=== PATIENT | male | born 1990 | race Caucasian/White ===

== ENCOUNTER 2017-05-04 05:33 | Day surgery (SDC) | payer OTHER ==
[2017-05-04] VITALS (9 sets, daily range): BP systolic 117–138; BP diastolic 51–70; PULSE 54–67; RESP 11–18; O2SAT 98–100
[~2017-05-04] VITALS: Ht 172.7 cm; Wt 83.6 kg
[~2017-05-04 05:33] MED LIST: CeFAZolin 2 Gm/50 mL D5W IV Premix IV ONE; Lactated Ringer's 1,000 ML IV ONE; Lactated Ringer's 1,000 ML IV SCH
[2017-05-04] MEDS ORDERED: Propofol 10,000 mCg/mL 20 mL Inj ONE (05:34)
[2017-05-04] MEDS ORDERED: fentaNYL-PF 50 mCg/mL 2 mL Inj ONE (05:34)
[2017-05-04] MEDS ORDERED: Ondansetron 2 mg/mL 2 mL Inj ONE (05:34)
[2017-05-04] MEDS ORDERED: MetoCLOpramide 5 mg/mL 2 mL Inj ONE (05:34)
[2017-05-04] MEDS ORDERED: Dexamethasone 4 mg/mL Inj ONE (05:34)
[2017-05-04] MEDS ORDERED: CeFAZolin 2 Gm/50 mL D5W IV Premix IV ONE (06:00)
[2017-05-04] MEDS ORDERED: Lactated Ringer's 1,000 ML IV ONE (06:00)
[2017-05-04] MEDS ORDERED: Lidocaine PF 1% 30 mL Inj NERVEBLOCK ONE (07:30)
[2017-05-04] MEDS ORDERED: Phenylephrine 10,000 mCg/mL Inj IVPUSH PRN (07:40)
[2017-05-04] MEDS ORDERED: HYDROmorphone 1 mg/mL Inj IVPUSH PRN (07:40)
[2017-05-04] MEDS ORDERED: fentaNYL-PF 50 mCg/mL 2 mL Inj IVPUSH PRN (07:40)
[2017-05-04] MEDS ORDERED: Lactated Ringer's 500 ML IV PRN (07:40)
[2017-05-04] MEDS ORDERED: Dexamethasone 4 mg/mL Inj IVPUSH PRN (07:40)
[2017-05-04] MEDS ORDERED: EPHEDrine Sulfate 50 mg/mL Inj IVPUSH PRN (07:40)
[2017-05-04] MEDS ORDERED: Lactated Ringer's 1,000 ML IV SCH (07:40)
[2017-05-04] MEDS ORDERED: Ondansetron 2 mg/mL 2 mL Inj IVPUSH PRN (07:40)
[2017-05-04] MEDS ORDERED: MetoCLOpramide 5 mg/mL 2 mL Inj IVPUSH PRN (07:40)
--- NOTE | 2017-05-04 07:40 | PCM.HPANE ---
Patient Data Date of Service: May 04, 2017 (0715) Surgeon Admitting Provider: Attending Provider:Karol Sotelo MD Primary Care Physician:Nayely Other Provider:Josie Garcia Anesthesia Reason for Visit Phimosis Ht/WT & BMI Height (Feet): 5 Height (Inches): 8.00 Weight (Kilograms): 83.640 Body Mass Index 27.00 Allergies Coded Allergies: No Known Allergies (Unverified , 04/29/17) Past Anesthesia History Anesthesia History: Denies:: Abnormal Airway, Anesthesia Reactions (no prior surgery), Difficult Intubation, Fam Anesthesia Reaction, Fam Malignant Hypertherm Diabetes History Hx Diabetes?: No MRSA MRSA: No Medications Hypertension Medication: No Home Meds Incl Beta [place]: No No Active Prescriptions or Reported Meds History History of ENT Problems?: No HEENT History: Denies:: Abnormal Airway Cataracts Difficult Intubation Dysphagia Glaucoma Hearing Problem Sinus Problem TMJ Denture Type: None Teeth Condition: Within Normal Limits Hx of Heart Problems?: No Cardiovascular History: Denies:: AICD Abdominal Aortic Aneurism Atrial Fibrillation Cardiac Surgery Heart Murmur Hypertension Irregular Heartbeat Pacemaker Hx of Respiratory Problem?: No Respiratory History: Denies:: Asthma COPD Emphysema Oxygen Administration Pneumonia Tuberculosis Use of C-PAP Machine Use of Inhalers / NEBS Hx Neurologic Problems?: No Neurological History: Denies:: CVA Dizziness Headaches Multiple Sclerosis Parkinson's Disease Seizures TIA Hx of GI Problems?: No Hx of Problems?: Yes Genitourinary History: Denies:: Kidney Stones Urinary Tract Infection Other Pertinent History: phimosis=current problem Male Hx: Denies:: Prostate Problems Scrotal Mass Testicular Surgery Skin History: Denies:: History Skin Disorders? Pressure Ulcers Hx Musculoskeletal Problems?: No Musculoskeletal History: Denies:: Back Injury Fibromyalgia Joint Replacement Musculoskeletal Trauma Myasthenia Gravis Osteoarthritis Rheumatoid Arthritis Systemic Lupus Hx of Psycho/Social Problems?: No Psycho Social History: Denies:: Anxiety Hx Depression Hx Surgeries?: No Hx Any Other Health Problems?: No Other History: Denies:: Cancer Endocrine Disease Hospitalization Thyroid Disease History Blood Transfusions: Positive for:: Accept Blood Products? Denies:: Blood Transfusions Hx Diabetes: No Hx Alcohol Use: NoHx Substance Use: NoHave You Smoked inLast 12 mo: No Stop/Bang S-Snoring: Do You Snore Loudly: No T-Tired: feel tired, fatigued: No O-Obsered: Observed not breath: No P-Blood Pressure: treated: No B- Body Mass Index > 35 kg/m2: No A- Age over 50: No N- Neck Large Circumference: No G- Gender Male: Yes ARIAN Total Score: 1 Risk Assessment Category Category 1A: Patient has history of documented sleep apnea, and HAS NOT received any narcotic, sedative or anesthesia administration during this stay. Category 1B: Patient has history of documented sleep apnea, and HAS received any narcotic , sedative or anesthesia administration during this stay Category 2: Patient has SUSPECTED Obstructive Sleep Apnea, and HAS received any narcotic , sedative or anesthesia administration during this stay. Category 3: Patient has SUSPECTED Obstructive Sleep Apnea and HAS NOT received narcotic, sedative or anesthesia administration during this stay. Category 4: Outpatient in Procedural Areas with known sleep apnea or who screen positive for High Risk via the STOP/BANG questionnaire. Exam Exam Vital Signs Vital Signs Date Time Temp Pulse Resp B/P Pulse Ox O2 Delivery O2 Flow Rate FiO2 05/04/17 06:07 36.3 63 14 138/68 100 Room Air General Appearance: Alert, Oriented X3, Cooperative, No Acute Distress HEENT/AIRWAY: MP 2 Lungs: Clear to Auscultation Heart: Exam Unremarkable Meds/Labs/Diagnostics Admission Meds Current Medications Lactated Ringer's (Lr) 1,000 ml @ ud STK-MED ONCE IV Last administered on 05/04t 06:00; Start 05/04/17 at 06:00; Stop 05/04/17 at 06:01; Status DC Plan Impression Patient chart reviewed, patient interviewed and anesthestic plan with risks, benefits, and alternatives discussed, and informed consent obtained. ASA Physical Status: ASA1 Normal Healthy Anesthetic Plan: GA Bene/Risks/Altern/Consents: Yes HP Complete Prior to Induction: Yes Franko Forman MD May 04, 2017 07:40
[2017-05-04] MEDS ORDERED: HYDROcodone-APAP 5-325 mg Tablet PO PRN (08:20)
--- NOTE | 2017-05-04 08:40 | PCM.ANEP1 ---
Post Anesthesia PACU Phase 1 Assessment Vital Signs Vital Signs Date Time Temp Pulse Resp B/P Pulse Ox O2 Delivery O2 Flow Rate FiO2 05/04/17 08:35 36.5 54 12 120/66 98 Room Air 05/04/17 08:30 57 11 121/63 98 Room Air 05/04/17 08:25 65 14 120/68 98 Room Air 05/04/17 08:20 36.8 67 12 126/58 98 Room Air 05/04/17 06:07 36.3 63 14 138/68 100 Room Air Anesthetic Administered: GA Level of Alertness: Awake, talking ZAYSA's with Equal Strength: Yes Pain: No Nausea or Vomiting: No CV Function & Hydration Stable: Yes Airway Device: Oxygen Delivery: Room Air Lungs: Clear to Auscultation Dermatome Level: Full Sensation PACU Phase 2 Assessment Complications: No Patient Instructions Provided: N/A Franko Forman MD May 04, 2017 08:39
--- NOTE | 2017-05-04 08:49 | OP ---
[address] [address] OPERATIVE REPORT PATIENT: CRYSTAL DIAZ : 1990 MR#: [id number] ADMIT: 05/04/2017 JOB ID: [id number] DATE OF SURGERY: 05/04/2017 PREOPERATIVE DIAGNOSIS(ES): Phimosis. POSTOPERATIVE DIAGNOSIS(ES): 1. Phimosis. 2. Tight frenulum. PROCEDURE PERFORMED: 1. Circumcision. 2. Frenulectomy. SURGEON: Karol Sotelo MD [employer] OPERATOR: None. FINDINGS: 1. Phimosis 2. Tight frenulum. ANESTHESIA: 1. General. 2. Local plain 1% lidocaine subcutaneously. ESTIMATED BLOOD LOSS: 5 mL. DRAINS: None. SPECIMENS: Foreskin. COMPLICATIONS: None. CONDITION: Stable. INDICATION FOR PROCEDURE: The patient is a 26-year-old gentleman who complains of phimosis. He now presents for circumcision. DESCRIPTION OF PROCEDURE: After informed consent was obtained, the patient was taken to the operating room. A time-out was performed, identifying correct patient, surgical site, and procedure. General anesthesia was induced. He was given intravenous antibiotics just prior to the start of the procedure. He was placed in the supine position and all pressure points were identified and appropriately padded. His genitals were then prepped and draped in the usual sterile fashion. Lidocaine was used subcutaneously for local anesthesia. A circumferential incision was made 1 cm proximal to the coronal ridge of the glans penis. A skin incision was made with a 15 blade. The penile skin was then gently placed over the glans penis, and 1 cm distal to the coronal impression on the skin, another incision was made with a 15 blade. This collar of tissue was incised with Bovie electrocautery circumferentially around the penis. The skin was reapproximated at the 12, 3, 6, and 9 o'clock positions with 3-0 chromic. The intervening quadrants were then also reapproximated in an interrupted fashion with 3-0 chromic. It was seen that the frenulum was quite tight. Agatha clamp was used to crimp this and incise the frenulum just somewhat with the Bovie electrocautery. Bacitracin was placed around the wound. Xeroform was placed around it, and Coban and Yuliana gauze for dressing. The patient had been instructed preoperatively on how to care for this dressing and his wound. The patient appeared to tolerate the procedure well without apparent complications. He was reversed from general anesthesia and taken to PACU in good and stable condition. GLORIA
--- NOTE | 2017-05-08 09:55 | PATH ---
SURGICAL PATHOLOGY Attending Physician:Karol Sotelo, CASE STATUS: Signed Out PATIENT NAME: CRYSTAL DIAZ PID: [id number] : 1990 DATE COLLECTED:05/04/2017 15:46 SPECIMEN: Foreskin CLINICAL HISTORY: PHIMOSIS 1. FORESKIN FINAL DIAGNOSIS: Foreskin, Removal: Unremarkable skin, negative for neoplasm. ICD10: N47.1 GROSS DESCRIPTION: Received one formalin-filled container, labeled with the patient's name and labeled "foreskin". Specimen consists of a alvarado-mao, wrinkly portion of skin which measures 6.0 x 3.0 x 0.6 cm. The specimen is inked blue. Two cash applications representative sections are submitted in one cassette. ([facility] [place]:[id number]) ICD-9 CODES: CPT CODES: 82080 Electronically Signed Out Scottie Tenorio MD [facility] Pathology [facility] [address], [place] [address] Technical component performed at [facility], [facility] [address], [place], [address]
== END 2017-05-04 23:59 | disposition home or self-care (01) ==
LOC: SAS 05:33
PROVIDERS: ATTEND Urology
DX: N47.1 Phimosis (principal); N47.2 Paraphimosis
CPT/HCPCS: 54161; 54164; J0690; J1100; J1885; J2250; J2405; J2765; J3010; J7120